=== PATIENT | female | born 1965 | race Caucasian/White ===

== ENCOUNTER → 2016-11-26 | Outpatient (CLI) | payer MEDICARE, MEDICAID ==
[~2016-11-26] MED LIST: ABILIFY30 MG PO; AMOXICILLIN 50500 MG PO; ATENOLOL50 MG PO; AUGMENTIN XR 101 TER PO; BENADRYL25 M1 PO; BIAXIN500 MG PO; BUSPIRONE HCL10 MG PO; CALCIUM CARBON600 MG PO; CIPRO 500MG TA500 MG PO; CIPRO500 MG PO; DARVOCET-N 1001 EACH PO; ESTRACE0.1 MG/GM VG; FLEXERIL10 MG PO; FUROSEMIDE 40MG40 M1 PO; GABAPENTIN 600600 MG PO; GABAPENTIN300 MG PO; GENTAMICIN3 MG/GM OP; HYDROCODONE BIT1 T45 PO; IBU-8800 MG PO; IMITREX100 MG PO; IRON TABLETS325 MG PO; LAMICTAL150 MG PO; LAMICTAL200 MG PO; LASIX20 MG PO; LEVOCETIRIZINE D5 MG PO; LISINOPRIL10 MG PO; LORATADINE 10MG10 M1 PO; LORTAB 5/500 501 TAB PO; MACROBID 100MG100 MG PO; MAGNESIUM OXID500 MG PO; MEDROL 4MG. DOSE4 MG PO; METOPROLOL25 MG PO; MULTI-VITAMIN1 EACH PO; NEURONTIN600 MG PO; OMEPRAZOLE20 MG PO; PHENERGAN 25MG.25 M1 PO; PHENERGAN 25MG.25 MG PR; PHENTERMINE H37.5 MG PO; PRAVASTATIN 20M20 MG PO; PREDNISONE 20MG20 MG; PREDNISONE 20MG20 MG PO; PROZAC40 MG PO; PYRIDIUM 200MG200 MG PO; PYRIDIUM100 MG PO; PYRIDIUM200 MG PO; RISPERDAL1 MG PO; SEROQUEL 100MG100 MG PO; STERAPRED DS10 MG PO; SUPER B COMPL PO; SYNTHROID 0.00.05 MG PO; TIZANIDINE HCL2 MG PO; TRAZODONE150 MG PO; ULTRACET 325 MG1 TAB PO; ULTRAM50 MG PO; VENLAFAXINE75 MG PO; VESICARE10 MG PO; VICODIN 5/500 T1 TAB PO; VIIBRYD20 MG PO; VISTARIL25 M1 PO; VITAMIN B121000 MC2 PO; VITAMIN B1250 MG PO; VITAMIN C100 MG PO; VIVELLE-DO0.1 MG/24 TD; WELLBUTRIN 100100 M1 PO; WELLBUTRIN 150150 MG PO; WELLBUTRIN SR100 MG PO
[2016-11-26 14:08] LABS: HEMOGLOBIN 13.4 g/dL (12.2-16.2); LYMPH # 1.8 K/mm3 (0.7-4.5); LYMPH % 15.3 % (10-50.0)
[2016-11-26 14:38] LABS: BUN 13 mg/dL (7-18)
[2016-11-26 14:40] LABS: GFR (ESTIMATED) 59 ML/MIN (59-)
== END ==
LOC: LAB 13:35
PROVIDERS: Emergency Medicine
DX: I10 Essential (primary) hypertension (principal); E78.5 Hyperlipidemia, unspecified; E03.9 Hypothyroidism, unspecified; Z79.899 Other long term (current) drug therapy

== ENCOUNTER → 2017-03-03 | Outpatient (CLI) | payer MEDICARE, MEDICAID ==
[2017-03-03 15:16] LABS: URINE BILIRUBIN - DIPSTICK NEGATIVE (NEG); URINE BLOOD NEGATIVE (NEG)
[2017-03-03 18:18] LABS: BUN 9 mg/dL (7-18); GFR (ESTIMATED) 53 ML/MIN (59-)
== END ==
LOC: LAB 14:53
PROVIDERS: Internal Medicine Nephrology
DX: N18.3 Chronic kidney disease, stage 3 (moderate) (principal); R82.90 Unspecified abnormal findings in urine

== ENCOUNTER 2017-07-29 20:07 | Emergency (ER) | payer MEDICARE ==
[~2017-07-29] VITALS: Ht 162.6 cm; Wt 112.9 kg
[2017-07-29] MEDS ORDERED: AUGMENTIN 875-1 EACH PO (20:56)
[2017-07-29] MEDS ORDERED: MEDROL 4MG. DOSE4 MG PO (20:56)
[2017-07-29] MEDS ORDERED: FLONASE 50 MCG16 GM (20:56)
[2017-07-29 20:58] VITALS: BP 123/74
--- NOTE | 2017-07-29 20:59 | Urgent Treatment Center Report ---
History of Present Issue Date/Time Seen by Provider 07/29/172044 Visit Reason Pt arrived:Walked Presenting Problem:LT EAR PAIN AND SINUS PRESSURE THAT STARTED YESTERDAY Location if Accident: Onset of symptoms date/time:/ or onset unknown for:MEDICAL HX UNKNOWN Have you (or family members/close friends) recently traveled outside the [place]? N If Yes, where/when: Have you had exposure to infectious disease within the past month? TB? Other? Specify: Patient state that she has been having sinus pain and pressure and having pain in her left ear State that she has been having sinus pain and pressure that started couple weeks ago then went away and now came back yesterday and now worse Tender to touch and feels pressure under her eyes and in her teeth. State that ear pain started yesterday and she thinks it may be coming from her sinsuses too ALLERGIES Coded Allergies: Sulfa (Sulfonamide Antibiotics) (Intermediate, I-HIVES 10/03/15) cefaclor (From Ceclor) (Intermediate, I-HIVES 10/03/15) Home Medications Active Scripts HYDROCODONE/ACETAMINOPHEN (Hydrocodon-Acetaminophen 5-325) 1 TAB PO TID PRN PAIN #90 TAB Prov: 12/16/16 Tramadol Hcl (Ultram 50MG) 50 MG PO TID #15 TAB Prov: 12/10/12 Reported Medications Omeprazole (Omeprazole 20MG) 20 MG PO BID Lisinopril 20 MG PO DAILY Lamotrigine (Lamictal) 150 MG PO BID Sumatriptan Succinate (Imitrex) 100 MG PO DAILYP Estradiol (Vivelle-Dot) 0.1 MG TD TWICE WEEKLY Calcium Carbonate 600 MG PO DAILY Ferrous Sulfate (Iron Tablet) 325 MG PO DAILY Multiple Vitamin (Multi-Vitamin Plain) 1 TAB PO DAILY Thiamine Hcl (Vitamin B-1) 250 MG PO DAILY Cyanocobalamin (Vitamin B12) 1,000 MCG PO DAILY Vitamin B Complex3 (Super B50 Complex) 1 CAP PO DAILY Ascorbic Acid (Vitamin C) 100 MG PO DAILY Hydroxyzine Pamoate (Vistaril 25MG CAP) 50 MG PO TID Risperidone (Risperdal) 1 MG PO TID Pravastatin Sodium (Pravastatin 20MG) 20 MG PO QHS LEVOCETIRIZINE DIHYDROCHLORIDE (Levocetirizine Dihydrochloride) 5 MG PO QAM Vilazodone Hydrochloride (Viibryd) 20 MG PO DAILY Gabapentin (Gabapentin 300MG) 300 MG PO BID Metoprolol Tartrate (Metoprolol) 12.5 MG PO ONCE Levothyroxine Sodium (Synthroid 0.05MG) 0.05 MG PO DAILY History Medical History General CAD? No Angina: Yes TN: No Hypertension? Yes Hyperlipidemia? Yes CHF? No DVT? No PE? No COPD? No Asthma? Yes Anemia? No GERD? Yes Gastric ulcers? No GI Bleed? No Hernia? Yes Thyroid Problems? Yes Hypothyroidism? Yes CVA? No Seizures? No Diabetes? No Renal Insuffiency? Yes UTI? No Stones? No GB Disease: Yes Nephritic Syndrome? No Asplenia? No Hepatitis? No Sickle Cell Disease? No Arthritis? Yes Migraines? Yes Cataracts? No Glaucoma? No MRSA? No HIV? No TB? No Anxiety? Yes Depression? Yes Cancer? No More? Yes Additional hx: 50% renal insufficiency Immunization HX DT/Tetanus < 1 YR AGO Flu LAST YEAR Pneumonia NEVER Surgical Hx Previous Surgery?Y MELO Gallbladd C SECTION X3 L KNEE X2 ARTHRO,REPLACEM L SHOULDER Tonsils Appendix HERNIA REPAIR-HIATAL NECK SURGERY PACEMAKER INSERTION NOSE BARIATRIC SURGERY 02-14-08 Family History Family HX Diabetes Yes CAD No Hypertension Yes Hyperlipidemia Yes Cancer Yes TB No Social History Smoking Hx Smoker: Never Smoker Tobacco: No Packs/day N/A Alcohol Alcohol: No Review of Systems All Other Systems Reviewed and Negative Constitutional chills, fever ENT ear pain, nose congestion. Respiratory denies cough, denies shortness of breath, denies wheezing Physical Exam Vital Signs Vital Signs Date Time Temp Pulse Resp B/P Pulse O2 O2 Flow FiO2 Ox Delivery Rate 07/29 2017 97.8 79 20 123/74 95 General Appearance Patient appears ill sitting in exam chair Ear, Nose, Throat sinus pain/drainage, nasal congestion, Tenderness noted maxillary sinuses Left ear red, tube observed Respiratory Status Yes: trachea midline, chest symmetrical, non tender chest. No: respiratory distress. Cardiovascular normal exam, regular rate/rhythm, no peripheral edema Neurologic alert, normal exam, oriented x 3 Medical Decision Making LABS/Meds/Orders Pt receiving controlled substance in ED? No Progress [facility] Progress Notes Comment Patient states that she is allergic to cephosporins however she has taken Augmentin before with no problems or reaction Patient educated on chance of cross sensitivity reaction verbalized understanding Departure Departure Time of Disposition 2051 Disposition DC Home or Self Care(routine) Clinical Impression Primary Impression: Sinusitis Condition STABLE Referrals Maame PATRICK,Jed Guerra (Family): 3 Days-Call Office if no improvement in symptoms Patient Instructions DI for Otitis Media (Middle Ear Infection)-Child, DI for Sinusitis, Sinus Headache, Sinusitis Additional Instructions Start antibiotic. Sinus infections may take 2-3 days to notice much improvement so be sure to use conservative measures as discussed for symptoms Flonase 2 spray in each nostril daily to help with nasal congestion, sinus an ear pressure/inflammation Lots of Fluids Sleep elevated Humidifer/vaporizer Discharge Counseling Counseled pt/family regarding diagnosis, medications/RX, home care, follow up needs Prescriptions Current Visit Scripts Amoxicillin/Potassium Clav (Augmentin 875-125 Tablet) 1 EACH PO BID #14 TAB Methylprednisolone (Medrol Dose Naun) 4 MG PO UD #1 NAUN TAKE DIRECTED ON PACKAGING Fluticasone Propionate (Flonase 50 Mcg Nasal [place]) 2 SPRAY NA DAILY #1 BOT at 2057
--- OUTSIDE RECORDS SUMMARY | 2017-08-01 13:46 | External Medical Summary Rpt | CCD ---
Author Author Conduent Organization Conduent Address Unknown Phone Unavailable Purpose Continuity of Care Document - through 2016
--- OUTSIDE RECORDS SUMMARY | 2017-08-01 13:46 | External Medical Summary Rpt | CCD ---
Author Author , NANI CARDOZA Address Unknown Phone [email or web address] Care Team Providers Care Machine Shop Inspector Name Role Phone Blake Chaney MD, Unavailable Unavailable Shanelle Landon MD Unavailable Unavailable JOSE ALEJANDRO Isabel MD, Unavailable Unavailable Audrey Olivera Unavailable Unavailable MANUELA PATRICK, Chucky Olivera III, MD Purpose Continuity of Care Document - 12-10-2012 through 2016 Problems Code Diagnosis DOS Provider Status 401.9 401.9 09-07-2013 [place] HYPERTENSIO [facility] N NOS Hospital 413.9 413.9 09-07-2013 [place] ANGINA [facility] PECTORIS Hospital NEC/NOS 458.0 458.0 09-07-2013 [place] ORTHOSTATIC [facility] HYPOTENSION 493.90 493.90 09-07-2013 [place] ASTHMA, [facility] UNSPECIFIED Hospital 780.2 780.2 09-07-2013 [place] SYNCOPE AND [facility] COLLAPSE Hospital V14.1 V14.1 09-07-2013 [place] HX-ANTIBIOT [facility] ALLERGY Hospital [facility] 692.6 692.6 07-17-2013 [place] DERMATITIS [facility] DUE TO Hospital PLANT 786.09 786.09 01-02-2013 [place] RESPIRATORY [facility] ABNORM NEC Hospital [id number] E849.0 01-02-2013 [place] ACCIDENT IN [facility] E932.0 E932.0 ADV 01-02-2013 [place] EFF [facility] Hospital OIDS E933.0 E933.0 ADV 01-02-2013 [facility] ANALLRG/ANT Hospital EMET 722.0 722.0 12-10-2012 [place] CERVICAL [facility] DISC [facility] DISPLACMNT 723.4 723.4 12-10-2012 [place] BRACHIAL [facility] NEURITIS Hospital NOS Allergies, Adverse Reactions, Alerts Type Drug Allergy Adverse Reaction to Substance Substance Reaction Severity Cephalosporin I-RASH Intermediate SULFA (sulfonamide) I-HIVES Intermediate Cefaclor I-HIVES Intermediate Medications Na ND Rx Da Fi Fi Am Da Di Ph RX Ph St me C No te ll ll ou ys ag ar # ys at rm s nt no ma ic us Or Da si cy ia de te s n re d SO 00 11 0 No DI 40 -2 UM 97 0- Lo 98 20 ng CH 30 13 er LO 9 RI Ac DE ti ve 0. 9% SO JAYLEEN TI ON Sa 63 11 0 No li 80 -2 ne 70 0- Lo 10 20 ng Fl 07 13 er us 5 h Ac 10 ti ML ve Sy ri ng e MA 00 11 0 No PA 90 -2 P 41 0- Lo 32 98 20 ng 5 26 13 er MG 1 Ac TA ti BL ve ET Sa 63 11 0 No li 80 -2 ne 70 0- Lo 10 20 ng Fl 07 13 er us 5 h Ac 10 ti ML ve Sy ri ng e SO 00 09 0 No JAYLEEN 00 -2 -M 90 9- Lo ED 04 20 ng RO 72 13 er L 2 12 Ac 5 ti MG ve AL DI 00 09 0 No PH 40 -2 EN 92 9- Lo HY [address] 03 13 er AM 1 IN Ac E ti 50 ve MG /M L SY RN G SO 00 08 0 No JAYLEEN 00 -1 -M 90 0- Lo ED 04 20 ng RO 72 13 er L 2 12 Ac 5 ti MG ve AL [place] 00 02 0 No ED 05 -2 NI 40 2- Lo SO 01 20 ng NE 82 13 er 0 20 Ac ti MG ve TA BL ET HY [address] 07 -2 OC 90 2- Lo OD 78 20 ng ON 09 13 er E/ 9H AP Ac AP ti ve 5/ 50 0M G TA KE Vital Signs 09-07-2013 07:33 Name Value Interpretat Reference Comment ion Range Body 98.2 [degF] Temperature BP 57 mm[Hg] Diastolic BP Systolic 95 mm[Hg] Heart 71 /min Rate/Pulse O2% 98 % Respiratory 20 /min Rate 09-07-2013 03:34 Name Value Interpretat Reference Comment ion Range BP 33 mm[Hg] Diastolic BP Systolic 90 mm[Hg] Heart 60 /min Rate/Pulse O2% 100 % Respiratory 20 /min Rate 07-17-2013 17:33 Name Value Interpretat Reference Comment ion Range Body 98.6 [degF] Temperature BP 78 mm[Hg] Diastolic BP Systolic 128 mm[Hg] Heart 66 /min Rate/Pulse O2% 95 % Respiratory 20 /min Rate 05-28-2013 20:16 Name Value Interpretat Reference Comment ion Range Body 98.6 [degF] Temperature BP 79 mm[Hg] Diastolic BP Systolic 117 mm[Hg] Heart 68 /min Rate/Pulse O2% 94 % Respiratory 17 /min Rate 01-02-2013 20:24 Name Value Interpretat Reference Comment ion Range BP 90 mm[Hg] Diastolic BP Systolic 141 mm[Hg] Heart 70 /min Rate/Pulse O2% 97 % Respiratory 24 /min Rate 01-02-2013 20:20 Name Value Interpretat Reference Comment ion Range Body 97.9 [degF] Temperature 01-02-2013 19:42 Name Value Interpretat Reference Comment ion Range Body 99.5 [degF] Temperature BP 101 mm[Hg] Diastolic BP Systolic 159 mm[Hg] Heart 78 /min Rate/Pulse O2% 96 % Respiratory 24 /min Rate 01-02-2013 14:23 Name Value Interpretat Reference Comment ion Range Body 98.3 [degF] Temperature BP 79 mm[Hg] Diastolic BP Systolic 122 mm[Hg] Heart 70 /min Rate/Pulse O2% 95 % Respiratory 20 /min Rate 01-02-2013 14:15 Name Value Interpretat Reference Comment ion Range Body 98.4 [degF] Temperature BP 77 mm[Hg] Diastolic BP Systolic 130 mm[Hg] Heart 67 /min Rate/Pulse O2% 95 % Respiratory 20 /min Rate 12-10-2012 22:03 Name Value Interpretat Reference Comment ion Range BP 105 mm[Hg] Diastolic BP Systolic 165 mm[Hg] Heart 76 /min Rate/Pulse O2% 98 % Respiratory 20 /min Rate 12-10-2012 20:47 Name Value Interpretat Reference Comment ion Range BP 98 mm[Hg] Diastolic BP Systolic 162 mm[Hg] Heart 98 /min Rate/Pulse O2% 99 % Respiratory 18 /min Rate Results Labs Lab Lab Date Result Refere Interp Status Commen Order Detail nces retati t Range on Drugs identified in Urine by Screen method (04-20-2017 11:14) Ampheta NEGATIV <1000 complet mine 017 E ed [Presen 11:14 ce] in Urine by Screen method 11-2 NEGATIV <50 complet oxy 017 E ed delta-9 11:14 tetrahy drocann abinol [Presen ce] in Unspeci fied specime n Hemoglobin A1c in Blood (03-18-2017 11:35) Hemoglo 5.0 % 0.0% Normal complet bin A1c 017 - ed in 11:35 7.0% Blood Protein [Presence] in Urine (03-03-2017 14:54) Protein < 6.0 0.0mg Normal complet 017 /dL - ed [Presen 14:54 11.9m ce] in g/dL Urine COMPREHENSIVE METABOLIC PANEL (09-07-2013 03:40) Glucose 75 74-106 complet 013 mg/dL ed Bld-mCn 03:40 c BUN 17 7-18 complet Bld-mCn 013 mg/dL ed c 03:40 Creat 09-07-2 1.1 0.6-1.0 complet SerPl-m 013 mg/dL ed Cnc 03:40 ESTIMAT 09-07- 111 50-200 complet ED 013 ML/MIN ed CREATIN 03:40 INE CLEARAN CE GFR 53 59- complet (ESTIMA 013 ML/MIN ed [place]) 03:40 Sodium 09-07- 138 136-145 complet SerPl-s 013 mmoL/L ed Cnc 03:40 Potassi 09-07- 4.5 3.5-5.1 complet um 013 mmoL/L ed SerPl-s 03:40 Cnc Chlorid 09-07- 101 98-107 complet e 013 mmoL/L ed SerPl-s 03:40 Cnc CO2 09-07-2 26 21.0-32 complet SerPl-s 013 mmoL/L .0 ed Cnc 03:40 Calcium 09-07-2 8.8 8.5-10. complet 013 mg/dL 1 ed SerPl-m 03:40 Cnc Prot 20-2 7.5 6.4-8.2 complet SerPl-m 013 gm/dL ed Cnc 03:40 Albumin 09-07-2 3.7 3.4-5.0 complet 013 gm/dL ed SerPl-m 03:40 Cnc Globuli 09-07-2 3.8 1.3-3.2 complet n 013 gm/dL ed Ser-mCn 03:40 c Albumin 11-20-2 1.0 UNK 1.1-1.8 complet /Glob 013 ed SerPl-m 03:40 Rto Bilirub 11-20-2 0.2 0.2-1.0 complet 013 mg/dL ed SerPl-m 03:40 Cnc AST 11-20-2 22 U/L 15-37 complet SerPl-c 013 ed Cnc 03:40 ALT 11-20-2 44 U/L 30-65 complet SerPl-c 013 ed Cnc 03:40 ALP 11-20-2 132 U/L 50-136 complet SerPl-c 013 ed Cnc 03:40 THYROID STIM HORMONE (09-07-2013 03:40) THYROID 11-20-2 10.77 0.358-3 complet STIM 013 uIU/ml .740 ed HORMONE 03:40 T3Free SerPl-mCnc (09-07-2013 03:40) T3Free 11-20-2 2 pg/mL 2.3-4.2 complet SerPl-m 013 ed Cnc 03:40 T4 Free SerPl-mCnc (09-07-2013 03:40) T4 Free 11-20-2 0.77 0.76-1. complet 013 ng/dL 46 ed SerPl-m 03:40 Cnc CBC with AUTO DIFF (09-07-2013 03:40) WBC # 11-20-2 10.1 4.8-10. complet Bld 013 K/MM3 8 ed Auto 03:40 RBC # 11-20-2 4.07 4.2-5.4 complet Bld 013 M/mm3 ed Auto 03:40 Hgb 11-20-2 12.8 12.2-16 complet Bld-mCn 013 g/dL .2 ed c 03:40 Hct Fr 11-20-2 40.2 % 37.0-47 complet Bld 013 .0 ed 03:40 MCV RBC 11-20-2 98.9 fl 82.2-97 complet 013 .8 ed 03:40 MCH RBC 11-20-2 31.5 pg 27-31.2 complet Qn 013 ed Auto 03:40 MEAN 11-20-2 31.9 31.8-35 complet CORPUSC 013 g/dl .4 ed ULAR 03:40 HGB CONC RDW RBC 11-20-2 14.7 % 11.5-17 complet Auto 013 .5 ed 03:40 Platele 11-20-2 241 142-424 complet t Bld 013 K/mm3 ed Ql 03:40 Manual MEAN 11-20-2 7.5 fl 7.4-10. complet PLATELE 013 4 ed T 03:40 VOLUME Granulo 11-20-2 64.1 % 37.0-80 complet cytes 013 .0 ed Fr Bld 03:40 Auto LYMPH % 11-20-2 28.3 % 10-50.0 complet 013 ed 03:40 Monocyt 11-20-2 4.4 % 1.7-9.3 complet es Fr 013 ed Bld 03:40 Auto Eosinop 11-20-2 2.8 % 0.1-12. complet hil Fr 013 0 ed Bld 03:40 Auto Basophi 11-20-2 0.4 % 0.1-2.0 complet ls Fr 013 ed Bld 03:40 Auto Granulo 11-20-2 6.5 1.8-7.8 complet cytes # 013 K/mm3 ed Bld 03:40 Auto Lymphoc 11-20-2 2.9 0.7-4.5 complet ytes Fr 013 K/mm3 ed Bld 03:40 Auto Monocyt 11-20-2 0.5 0.1-1.0 complet es # 013 K/mm3 ed Bld 03:40 Auto Eosinop 11-20-2 0.3 0.0-0.4 complet hil # 013 K/mm3 ed Bld 03:40 Auto Basophi 11-20-2 0.0 0-0.2 complet ls # 013 K/MM3 ed Bld 03:40 Auto Encounters Encounter Start End Date Code Location Performer Type Date Emergency LUCHO Olivera (ER) 3 03:23 3 07:34 [facility] Emergency LUCHO Chaney MD (ER) 3 17:21 3 17:38 [facility] Emergency LUCHO Chaney MD (ER) 3 19:58 3 20:18 [facility] Emergency LUCHO Isabel MD (ER) 3 19:07 3 20:29 [facility] Emergency LUCHO Olivera (ER) 3 14:00 3 14:27 [facility] Chucky Nicholson. Emergency LUCHO Timmons (ER) 3 20:53 3 22:04 [facility]
--- OUTSIDE RECORDS SUMMARY | 2017-08-01 13:46 | External Medical Summary Rpt | CCD ---
Author Author , NANI CARDOZA Address Unknown Phone [email or web address] Immunization Name Date Rout CVX Reac Dose Comm Prov Is Faci e tion ent ider Refu lity Give sed n Infl 10-0 Intr 150 0.5 Hist [facility] No [facility] uenz 2-20 amus mL oric ART5 ART5 a 17 cula al 91 91 Quad r Info Inj rmat ion - Sour ce Unsp ecif ied Infl 09-1 Intr 150 0.5 Hist [facility] No [facility]M uenz 2-20 amus mL oric ART5 ART5 a 16 cula al 91 91 Quad r Info Inj rmat ion - Sour ce Unsp ecif ied PPV2 08-0 Intr 33 0.5 Hist [facility] No W[facility]M 3 9-20 amus mL oric ART5 ART5 16 cula al 91 91 r Info rmat ion - Sour ce Unsp ecif ied
--- OUTSIDE RECORDS SUMMARY | 2017-08-01 13:46 | External Medical Summary Rpt | CCD ---
Author Author , NANI CARDOZA Address Unknown Phone [email or web address] Immunization Name Date Rout CVX Reac Dose [...]
--- OUTSIDE RECORDS SUMMARY | 2017-08-01 13:46 | External Medical Summary Rpt ---
Author Author [employer], [employer] Organization [employer] Address Unknown Phone Unavailable Results Opiates and Oxycodone(GC/MS),U Observa Value Referen Units Interpr Notes Date tion ce etation Range Oxycodo Negativ Cutoff= No No Test Apr 20 ne/Oxym e 100 informa informa include 2017 orph tion in tion in s 11:14 source source Oxycodo AM data data ne and Oxymorp honePer formed at: [facility] [id number] [place], [place] [id number]Lab Directo r: Jed Zamudio MD, Phone: [phone] Opiates Negativ Cutoff= No No Opiate Apr 20 e 100 informa informa test 2017 tion in tion in include 11:14 source source s AM data data Codeine , Morphin e, Hydromo rphone, Hydroco done. Drugs identified in Urine by Screen method Observa Value Referen Units Interpr Notes Date tion ce etation Range Positive urine drug screen samples are stored for 7 days. Contact the Lab if confirmation of positives is needed. Ampheta NEGATIV <1000 ng/mL No No Apr 20 mine E informa informa 2016 [Presen tion in tion in 11:14 ce] in source source AM Urine data data by Screen method Barbitura <200 ng/mL No No Apr 20 tigre informati informati 2016 [Mass/vol on in on in 11:14 AM ume] in source source Urine by data data Screen method Benzodiaz 200 ng/mL ng/mL No No Apr 20 epines informati informati 2016 [Mass/vol on in on in 11:14 AM ume] in source source Serum or data data Plasma by Screen method Cocaine <300 ng/g No No Apr 20 [Mass/vol informati informati 2016 ume] in on in on in 11:14 AM Unspecifi source source ed data data specimen Methadone <300 ng/mL No No Apr 20 informati informati 2016 [Mass/vol on in on in 11:14 AM ume] in source source Unspecifi data data ed specimen Opiates <300 ng/mL High This is Apr 20 [Mass/vol an 2016 ume] in UNCONFIRM 11:14 AM Unspecifi ED ed result. specimen This result is for medicalpu rposes and/or treatment only. Phencycli <25 ng/mL No No Apr 20 dine informati informati 2016 [Mass/vol on in on in 11:14 AM ume] in source source Unspecifi data data ed specimen 11-Hydr NEGATIV <50 ng/mL No No Apr 20 oxy E informa informa 2017 delta-9 tion in tion in 11:14 source source AM tetrahy data data drocann abinol [Presen ce] in Unspeci fied specime n Basic metabolic panel in Blood Observa Value Referen Units Interpr Notes Date tion ce etation Range Urea 7 - 18 mg/dL Normal No March 18 nitrogen informati 2016 [Mass/vol on in 11:35 AM ume] in source Serum or data Plasma Calcium 8.5 - mg/dL Normal No March 18 [Mass/vol 10.1 informati 2016 ume] in on in 11:35 AM Serum or source Plasma data Chloride 98 - 107 mmoL/L Normal No March 18 [Moles/vo informati 2016 lume] in on in 11:35 AM Serum or source Plasma data Carbon 21.0 - mmoL/L Normal No March 18 dioxide, 32.0 informati 2016 total on in 11:35 AM [Moles/vo source lume] in data Serum or Plasma Creatinin 0.55 - mg/dL Normal No March 18 e 1.02 informati 2016 [Mass/vol on in 11:35 AM ume] in source Serum or data Plasma Estimated 59- ML/MIN No REFERENCE March 18 informati RANGE: 2017 glomerula on in >60 11:35 AM r source ML/MIN/1. filtratio data 73 SQUARE n rate METERSIf (GF this patient is -A merican, then multiply theresult by 1.210. Glucose 74 - 106 mg/dL Normal No March 18 [Mass/vol informati 2016 ume] in on in 11:35 AM Serum or source Plasma data Potassium 3.5 - 5.1 mmoL/L Normal No March 18 informati 2016 [Moles/vo on in 11:35 AM lume] in source Serum or data Plasma Sodium 136 - 145 mmoL/L Normal No March 18 [Moles/vo informati 2016 lume] in on in 11:35 AM Serum or source Plasma data Thyroxine (T4) [Mass/volume] in Serum or Plasma Observa Value Referen Units Interpr Notes Date tion ce etation Range Thyroxine 4.7 - ug/dl Normal No March 18 (T4) 13.3 informati 2016 [Mass/vol on in 11:35 AM ume] in source Serum or data Plasma Thyrotropin [Units/volume] in Serum or Plasma Observa Value Referen Units Interpr Notes Date tion ce etation Range Thyrotrop 0.358 - uIU/ml Normal No March 18 in 3.740 informati 2016 [Units/vo on in 11:35 AM lume] in source Serum or data Plasma Hemoglobin A1c in Blood Observa Value Referen Units Interpr Notes Date tion ce etation Range Hemoglo 5.0 0.0 - % Normal < 6% March 18 bin A1c 7.0 NON-MARIBELL 2017 in BETIC 11:35 Blood LEVEL< AM 7% CONTROL LED DIABETI C LEVEL> 8% POORLY CONTROL LED DIABETI C LEVEL Parathyrin.intact [Mass/volume] in Serum or Plasma Observa Value Referen Units Interpr Notes Date tion ce etation Range Parathyri 15 - 65 pg/mL No Performed March 03 n.intact informati at: CB 2017 2:54 [Mass/vol on in - [facility] PM ume] in source Serum or data [place] [address] Plasma 0 [place], [place] [id number] Director College: Gerald Aguilar PhD, Phone: [phone] Renal function 2000 panel in Serum or Plasma Observa Value Referen Units Interpr Notes Date tion ce etation Range Albumin 3.4 - 5.0 gm/dL Normal No March 03 [Mass/vol informati 2016 2:54 ume] in on in PM Serum or source Plasma data Urea 7 - 18 mg/dL Normal No March 03 nitrogen informati 2016 2:54 [Mass/vol on in PM ume] in source Serum or data Plasma Calcium 8.5 - mg/dL Normal No March 03 [Mass/vol 10.1 informati 2016 2:54 ume] in on in PM Serum or source Plasma data Chloride 98 - 107 mmoL/L Normal No March 03 [Moles/vo informati 2016 2:54 lume] in on in PM Serum or source Plasma data Carbon 21.0 - mmoL/L Normal No March 03 dioxide, 32.0 informati 2016 2:54 total on in PM [Moles/vo source lume] in data Serum or Plasma Creatinin 0.55 - mg/dL High No March 03 e 1.02 informati 2016 2:54 [Mass/vol on in PM ume] in source Serum or data Plasma Estimated 59- ML/MIN Low REFERENCE March 03 RANGE: 2017 2:54 glomerula >60 PM r ML/MIN/1. filtratio 73 SQUARE n rate METERSIf (GF this patient is -A merican, then multiply theresult by 1.210. Glucose 74 - 106 mg/dL High No March 03 [Mass/vol informati 2016 2:54 ume] in on in PM Serum or source Plasma data Potassium 3.5 - 5.1 mmoL/L Normal No March 03 inform2016 2:54 [Moles/vo on in PM lume] in source Serum or data Plasma Sodium 136 - 145 mmoL/L Normal No March 03 [Moles/vo informati 2016 2:54 lume] in on in PM Serum or source Plasma data Phosphate 2.4 - 4.9 mg/dL Normal No March 03 inform2016 2:54 [Moles/vo on in PM lume] in source Unspecifi data ed specimen 25-Hydroxyvitamin D [Mass/volume] in Serum or Plasma Observa Value Referen Units Interpr Notes Date tion ce etation Range 25-Hydrox 30.0 - ng/mL No Vitamin D March 03 yvitamin 100.0 informati 2016 2:54 D on in deficienc PM [Mass/vol source y has ume] in data been Serum or defined Plasma by the [place] ofMedicin e and an Endocrine Society practice guideline as alevel of serum 25-OH vitamin D less than 20 ng/mL (1,2).The Endocrine Society went on to further define vitamin Dinsuffic iency as a level between 21 and 29 ng/mL (2).1. IOM (Institut e of Medicine) . 2010. Dietary reference intakes for calcium and D. Len stevenson [place]: [employer].2. Jose MF, Enedina [place], Manpreet Qureshi BOSCH, et al.Evalua tion, treatment , and preventio n of vitamin Ddeficien cy: an Endocrine Society clinical practiceg uideline. JCEM. 2010; 96(7):191 1-30.Perf ormed at: [facility] [place] [address] [place], [place] [id number] Director College: Gerald Aguilar PhD, Phone: [phone] Creatinine [Mass/volume] in Urine Observa Value Referen Units Interpr Notes Date tion ce etation Range Creatinin 20 - 320 mg/dL Normal No March 03 e informati 2017 2:54 [Mass/vol on in PM ume] in source Urine data Protein [Presence] in Urine Observa Value Referen Units Interpr Notes Date tion ce etation Range Protein < 6.0 0.0 - mg/dL Normal No March 03 11.9 informa 2016 [Presen tion in 2:54 PM ce] in source Urine data
--- OUTSIDE RECORDS SUMMARY | 2017-08-01 13:46 | External Medical Summary Rpt ---
[...] data ne and [employer] honePer formed at: [facility] [id number] [place], [place] [id number] 53Lab Directo r: Jed Zamudio MD, Phone: [phone] Opiates Negativ Cutoff= No No Opiate Apr [...] PM ume] in source Serum or data [address] [address] Plasma 0 [place], [place] [id number] Senior Environmental Consultant: Gerald Aguilar PhD, Phone: [phone] Renal function 2000 panel in Serum [...] been Serum or defined Plasma by the [place] ofMedicin e and an Endocrine Society practice guideline as alevel of serum 25-OH vitamin D less than 20 ng/mL (1,2).The Endocrine Society went on to further define vitamin Dinsuffic iency as a level between 21 and 29 ng/mL (2).1. IOM (Institut e of Medicine) . 2010. Dietary reference intakes for calcium and D. Len stevenson DC: TheNation al AcademAkeneo Press.2. Jose MF, Enedina [place], Manpreet Qureshi BOSCH, et al.Evalua tion, treatment , and preventio n of vitamin Ddeficien cy: an Endocrine Society clinical practiceg uideline. JCEM. 2010; 96(7):191 1-30.Perf ormed at: [facility] [address] [address] 0 [place], [place] [id number] Senior Environmental Consultant: Gerald Aguilar PhD, Phone: [phone] Creatinine [Mass/volume] in Urine Observa Value [...]
--- OUTSIDE RECORDS SUMMARY | 2017-08-01 13:46 | External Medical Summary Rpt | CCD ---
Author Author , NANI CARDOZA Address Unknown Phone [email or web address] Care Team Providers Care Finishing Range Supervisor Name Role Phone Blake Chaney MD, Unavailable Unavailable Shanelle Landon MD Unavailable Unavailable JOSE ALEJANDRO Isabel MD, Unavailable Unavailable Audrey Olivera Unavailable Unavailable MANUELA PATRICK, Chucky Olivera III, MD Purpose Continuity of Care Document - 12-10-2012 through 2016 Problems Code Diagnosis DOS Provider Status 401.9 401.9 09-07-2013 [place] HYPERTENSIO [facility] N NOS Hospital 413.9 413.9 09-07-2013 [place] ANGINA [facility] PECTORIS Hospital NEC/NOS 458.0 458.0 09-07-2013 [place] ORTHOSTATIC [facility] HYPOTENSION 493.90 493.90 09-07-2013 [place] ASTHMA, [facility] UNSPECIFIED Hospital 780.2 780.2 09-07-2013 [place] SYNCOPE AND [facility] COLLAPSE Hospital V14.1 V14.1 09-07-2013 [place] HX-ANTIBIOT [facility] ALLERGY Hospital [facility] 692.6 692.6 07-17-2013 [place] DERMATITIS [facility] DUE TO Hospital PLANT 786.09 786.09 01-02-2013 [place] RESPIRATORY [facility] ABNORM NEC Hospital E849.0 E849.0 01-02-2013 [place] ACCIDENT IN [facility] E932.0 E932.0 ADV 01-02-2013 [place] EFF [facility] Hospital OIDS E933.0 E933.0 ADV 01-02-2013 [facility] ANALLRG/ANT Hospital EMET 722.0 722.0 12-10-2012 [place] CERVICAL [facility] DISC [facility] DISPLACMNT 723.4 723.4 12-10-2012 [place] BRACHIAL [facility] NEURITIS Hospital NOS Allergies, Adverse Reactions, [...] 12 Ac 5 ti MG ve AL AR 00 02 0 No ED 05 -2 [...] LUCHO Olivera (ER) 3 03:23 3 07:34 [facility] Emergency LUCHO Chaney MD (ER) 3 17:21 3 17:38 [facility] Emergency LUCHO Chaney MD (ER) 3 19:58 3 20:18 [facility] Emergency LUCHO Isabel MD (ER) 3 19:07 3 20:29 [facility] Emergency LUCHO Olivera (ER) 3 14:00 3 14:27 [facility] Chucky Nicholson. Emergency LUCHO Timmons (ER) 3 20:53 3 22:04 [facility]
== END 2017-07-29 20:59 | disposition home or self-care (01) ==
LOC: UTC 20:07
DX: J01.90 Acute sinusitis, unspecified (principal); J45.909 Unspecified asthma, uncomplicated; E03.9 Hypothyroidism, unspecified; I10 Essential (primary) hypertension; Z88.2 Allergy status to sulfonamides; F41.8 Other specified anxiety disorders

== ENCOUNTER 2017-08-09 16:49 | Emergency (ER) | payer MEDICARE ==
[~2017-08-09] VITALS: Ht 162.6 cm; Wt 115.7 kg
[~2017-08-09 16:49] MED LIST changes: +AUGMENTIN 875-1 EACH PO; +FLONASE 50 MCG16 GM
--- OUTSIDE RECORDS SUMMARY | 2017-08-09 16:55 | External Medical Summary Rpt | CCD ---
Author Author , NANI CARDOZA Address Unknown Phone [email or web address] Care Team Providers Care Bottle Filler Name Role Phone lBake Chaney MD, Unavailable Unavailable Shanelle Landon MD Unavailable Unavailable JOSE ALEJANDRO Isabel MD, Unavailable Unavailable Audrey Olivera Unavailable Unavailable MANUELA PATRICK, Chucky Olivera III, MD Purpose Continuity of Care Document - 12-10-2012 through 2016 Problems Code Diagnosis DOS Provider Status 401.9 401.9 09-07-2013 [place] HYPERTENSIO [facility] N NOS Hospital 413.9 413.9 09-07-2013 [place] ANGINA [facility] PECTORIS Hospital NEC/NOS 458.0 458.0 09-07-2013 [place] ORTHOSTATIC [facility] HYPOTENSION 493.90 493.90 09-07-2013 [place] ASTHMA, [facility] UNSPECIFIED Hospital 780.2 780.2 09-07-2013 [place] SYNCOPE AND [facility] COLLAPSE Hospital V14.1 V14.1 09-07-2013 [place] HX-ANTIBIOT [facility] ALLERGY Hospital [facility] 692.6 692.6 07-17-2013 [place] DERMATITIS [facility] DUE TO Hospital PLANT 786.09 786.09 01-02-2013 [place] RESPIRATORY [facility] ABNORM NEC Hospital E849.0 E849.0 01-02-2013 [place] ACCIDENT IN [facility] E932.0 E932.0 ADV 01-02-2013 [place] EFF [facility] Hospital OIDS E933.0 E933.0 ADV 01-02-2013 [facility] ANALLRG/ANT Hospital EMET 722.0 722.0 12-10-2012 [place] CERVICAL [facility] DISC Hospital DISPLACMNT 723.4 723.4 12-10-2012 [place] BRACHIAL [facility] NEURITIS Hospital NOS Allergies, Adverse Reactions, [...] 12 Ac 5 ti MG ve AL GA 00 02 0 No ED 05 -2 [...] LUCHO Olivera (ER) 3 03:23 3 07:[address] [facility] Emergency LUCHO Chaney MD (ER) 3 17:21 3 17:38 [facility] Emergency LUCHO Chaney MD (ER) 3 19:58 3 20:18 [facility] Emergency LUCHO Isabel MD (ER) 3 19:07 3 20:29 [facility] Emergency LUCHO Olivera (ER) 3 14:00 3 14:27 [facility] Chucky Nicholson. Emergency LUCHO Timmons (ER) 3 20:53 3 22:04 [facility]
--- OUTSIDE RECORDS SUMMARY | 2017-08-09 16:55 | External Medical Summary Rpt | CCD ---
Author Author , NANI CARDOZA Address Unknown Phone [email or web address] Immunization Name Date Rout CVX Reac Dose [...]
--- OUTSIDE RECORDS SUMMARY | 2017-08-09 16:55 | External Medical Summary Rpt | CCD ---
Author Author , NANI CARDOZA Address Unknown Phone [email or web address] Immunization Name Date Rout CVX Reac Dose [...]
--- OUTSIDE RECORDS SUMMARY | 2017-08-09 16:55 | External Medical Summary Rpt | CCD ---
Author Author , NANI CARDOZA Address Unknown Phone [email or web address] Care Team Providers Care Coding Director Name Role Phone Blake Chaney MD, Unavailable Unavailable Shanelle Landon MD Unavailable Unavailable JOSE ALEJANDRO Isabel MD, Unavailable Unavailable Audrey Olivera Unavailable Unavailable MANUELA PATRICK, Chucky Olivera III, MD Purpose Continuity of Care Document - 12-10-2012 through 2016 Problems Code Diagnosis DOS Provider Status 401.9 401.9 09-07-2013 [place] HYPERTENSIO [facility] N NOS Hospital 413.9 413.9 09-07-2013 [place] ANGINA [facility] PECTORIS Hospital NEC/NOS 458.0 458.0 09-07-2013 [place] ORTHOSTATIC [facility] HYPOTENSION 493.90 493.90 09-07-2013 [place] ASTHMA, [facility] UNSPECIFIED Hospital 780.2 780.2 09-07-2013 [place] SYNCOPE AND [facility] COLLAPSE Hospital V14.1 V14.1 09-07-2013 [place] HX-ANTIBIOT [facility] ALLERGY Hospital [facility] 692.6 692.6 07-17-2013 [place] DERMATITIS [facility] DUE TO Hospital PLANT 786.09 786.09 01-02-2013 [place] RESPIRATORY [facility] ABNORM NEC Hospital E849.0 E849.0 01-02-2013 [place] ACCIDENT IN [facility] E932.0 E932.0 ADV 01-02-[address] [place] [address] [facility] OIDS E933.0 E933.0 ADV 01-02-2013 [facility] ANALLRG/ANT Hospital EMET 722.0 722.0 12-10-2012 [place] CERVICAL [facility] DISC Hospital DISPLACMNT 723.4 723.4 12-10-2012 [place] BRACHIAL [facility] NEURITIS Hospital NOS Allergies, Adverse Reactions, [...] 12 Ac 5 ti MG ve AL AL 00 02 0 No ED 05 -2 [...] LUCHO Olivera (ER) 3 03:23 3 07:34 [facility] Emergency LUCHO Chaney MD (ER) 3 17:21 3 17:38 [facility] Emergency LUCHO Chaney MD (ER) 3 19:58 3 20:18 [facility] Emergency LUCHO Isabel MD (ER) 3 19:07 3 20:29 [facility] Emergency LUCHO Olivera (ER) 3 14:00 3 14:27 [facility] Chucky Nicholson. Emergency LUCHO Timmons (ER) 3 20:53 3 22:04 [facility]
--- OUTSIDE RECORDS SUMMARY | 2017-08-09 16:55 | External Medical Summary Rpt ---
[...] formed at: [facility] [id number] [place], [place] [address] 53Lab Directo r: Jed Zamudio MD, Phone: [phone] Opiates Negativ Cutoff= No No Opiate Apr [...] PM ume] in source Serum or data [address] [address] Plasma 0 [place], [place] [id number] Spinner Open End: Gerald Aguilar PhD, Phone: [phone] Renal function 2000 panel in Serum [...] been Serum or defined Plasma by the [place] ofMedicin e and an Endocrine Society practice guideline as alevel of serum 25-OH vitamin D less than 20 ng/mL (1,2).The Endocrine Society went on to further define vitamin Dinsuffic iency as a level between 21 and 29 ng/mL (2).1. IOM (Institut e of Medicine) . 2010. Dietary reference intakes for calcium and D. Len stevenson DC: TheNation al AcademMakeGamesWithUs Press.2. Jose MF, Enedina [place], Manpreet Qureshi BOSCH, et al.Evalua tion, treatment , and preventio n of vitamin Ddeficien cy: an Endocrine Society clinical practiceg uideline. JCEM. 2010; 96(7):191 1-30.Perf ormed at: [facility] [address] [address] 0 [place], [place] [id number] Spinner Open End: Gerald Aguilar PhD, Phone: [phone] Creatinine [Mass/volume] in Urine Observa Value [...]
--- OUTSIDE RECORDS SUMMARY | 2017-08-09 16:55 | External Medical Summary Rpt ---
[...] data ne and [employer] honePer formed at: [facility] [id number] [place], [place] [address] 53Lab Directo r: Jed Zamudio MD, Phone: [phone] Opiates Negativ Cutoff= No No Opiate Apr [...] PM ume] in source Serum or data [address] [address] Plasma 0 [place], [place] [id number] Resolution Rep: Gerald Aguilar PhD, Phone: [phone] Renal function 2000 panel in Serum [...] been Serum or defined Plasma by the [place] ofMedicin e and an Endocrine Society practice guideline as alevel of serum 25-OH vitamin D less than 20 ng/mL (1,2).The Endocrine Society went on to further define vitamin Dinsuffic iency as a level between 21 and 29 ng/mL (2).1. IOM (Institut e of Medicine) . 2010. Dietary reference intakes for calcium and D. Len stevenson DC: TheNation al AcademTaqua Press.2. Jose MF, Ened[place], Manpreet Qureshi BOSCH, et al.Evalua tion, treatment , and preventio n of vitamin Ddeficien cy: an Endocrine Society clinical practiceg uideline. JCEM. 2010; 96(7):191 1-30.Perf ormed at: [facility] [address] [address] 0 [place], [place] [id number] Resolution Rep: Gerald Aguilar PhD, Phone: [phone] Creatinine [Mass/volume] in Urine Observa Value [...]
--- NOTE | 2017-08-09 17:25 | Urgent Treatment Center Report ---
History of Present Issue Date/Time Seen by Provider 08/09/17 1720 Visit Reason Pt arrived:Walked Presenting Problem:SEEN HERE, SINUS INFECTION, FINISHED ABX, SAME SYMPTOMS NOW Location if Accident: Onset of symptoms date/time:/ or onset unknown for:MEDICAL HX UNKNOWN Have you (or family members/close friends) recently traveled outside the [place]? N If Yes, where/when: Have you had exposure to infectious disease within the past month? TB? Other? Specify: c/o sinusitis again. Pt was seen here by another [employer] on 07/29 for one day hx of left ear pain and sinus pain. Has same symptoms two weeks prior that improved "somewhat" w/ mucinex but had gotten worse again. Dx sinusitis and OM, rx augmentin, flonase and medrol dose pack. Slight improvement but since yesterday, sinus pressure ("especially on left") starting to build again. Causing teeth to ache again and left eye to water "like before". Completed augmentin, medrol dose pack and prescribed flonase so hasn't taken or tried anything else. Reports a hx of this pattern ongoing for unknown amount of time "back to back like this". Has seen Dr. Hoff, ENT. Hx of PE tube placement "for something". Unsure if tubes are still in. Denies ever having CT or imaging of sinuses. Unsure when last saw Dr. Hoff and no scheduled follow up appointment. Has not seen PCP for frequency of symptoms. Source patient Exam Limitations no limitations ALLERGIES Coded Allergies: Sulfa (Sulfonamide Antibiotics) (Intermediate, I-HIVES 10/03/15) cefaclor (From Ceclor) (Intermediate, I-HIVES 10/03/15) Home Medications Active Scripts HYDROCODONE/ACETAMINOPHEN (Hydrocodon-Acetaminophen 5-325) 1 TAB PO TID PRN PAIN #90 TAB Prov: 12/16/16 Amoxicillin/Potassium Clav (Augmentin 875-125 Tablet) 1 EACH PO BID #14 TAB Prov: 07/29/17 Methylprednisolone (Medrol Dose Naun) 4 MG PO UD #1 NAUN Prov: 07/29/17 Fluticasone Propionate (Flonase 50 Mcg Nasal [place]) 2 SPRAY NA DAILY #1 BOT Prov: 07/29/17 Tramadol Hcl (Ultram 50MG) 50 MG PO TID #15 TAB Prov: 12/10/12 Reported Medications Omeprazole (Omeprazole 20MG) 20 MG PO BID Lisinopril 20 MG PO DAILY Lamotrigine (Lamictal) 150 MG PO BID Sumatriptan Succinate (Imitrex) 100 MG PO DAILYP Estradiol (Vivelle-Dot) 0.1 MG TD TWICE WEEKLY Calcium Carbonate 600 MG PO DAILY Ferrous Sulfate (Iron Tablet) 325 MG PO DAILY Multiple Vitamin (Multi-Vitamin Plain) 1 TAB PO DAILY Thiamine Hcl (Vitamin B-1) 250 MG PO DAILY Cyanocobalamin (Vitamin B12) 1,000 MCG PO DAILY Vitamin B Complex3 (Super B50 Complex) 1 CAP PO DAILY Ascorbic Acid (Vitamin C) 100 MG PO DAILY Hydroxyzine Pamoate (Vistaril 25MG CAP) 50 MG PO TID Risperidone (Risperdal) 1 MG PO TID Pravastatin Sodium (Pravastatin 20MG) 20 MG PO QHS LEVOCETIRIZINE DIHYDROCHLORIDE (Levocetirizine Dihydrochloride) 5 MG PO QAM Vilazodone Hydrochloride (Viibryd) 20 MG PO DAILY Gabapentin (Gabapentin 300MG) 300 MG PO BID Metoprolol Tartrate (Metoprolol) 12.5 MG PO ONCE Levothyroxine Sodium (Synthroid 0.05MG) 0.05 MG PO DAILY History Medical History General CAD? No Angina: Yes [place]: No Hypertension? Yes Hyperlipidemia? Yes CHF? No DVT? No PE? No COPD? No Asthma? Yes Anemia? No GERD? Yes Gastric ulcers? No GI Bleed? No Hernia? Yes Thyroid Problems? Yes Hypothyroidism? Yes CVA? No Seizures? No Diabetes? No Renal Insuffiency? Yes UTI? No Stones? No GB Disease: Yes Nephritic Syndrome? No Asplenia? No Hepatitis? No Sickle Cell Disease? No Arthritis? Yes Migraines? Yes Cataracts? No Glaucoma? No MRSA? No HIV? No TB? No Anxiety? Yes Depression? Yes Cancer? No More? Yes Additional hx: 50% renal insufficiency Immunization HX DT/Tetanus < 1 YR AGO Flu LAST YEAR Pneumonia NEVER Surgical Hx Previous Surgery?Y MELO Gallbladd C SECTION X3 L KNEE X2 ARTHRO,REPLACEM L SHOULDER Tonsils Appendix HERNIA REPAIR-HIATAL NECK SURGERY PACEMAKER INSERTION NOSE BARIATRIC SURGERY 02-14-08 Family History Family HX Diabetes Yes CAD No Hypertension Yes Hyperlipidemia Yes Cancer Yes TB No Social History Smoking Hx Smoker: Never Smoker Tobacco: No Packs/day N/A Alcohol Alcohol: No Review of Systems All Other Systems Reviewed and Negative Constitutional see HPI, denies chills, denies fever, denies malaise Eyes see HPI, denies inflammation, denies pain ENT see HPI. denies: ear discharge, throat pain. Respiratory denies cough, denies shortness of breath Gastrointestinal denies no symptoms reported Musculoskeletal denies joint pain, denies neck pain Skin denies rash Psychiatric/Neurological headache ("sinus pressure type"), denies other (dizziness) Physical Exam Vital Signs Vital Signs Date Time Temp Pulse Resp B/P Pulse O2 O2 Flow FiO2 Ox Delivery Rate 08/09 1658 97.2 83 18 116/77 94 General Appearance no apparent distress, obese Eye Exam - bilateral eye normal exam Ear, Nose, Throat ashley eacs and tms normal, nasal congestion, moderate sinus pressure left maxillary and frontal sinuses, normal pharynx x/ PND Neck non-tender, supple, full range of motion Respiratory Status No: respiratory distress, productive cough, non productive cough. Lung Sounds anterior: lungs clear. posterior: lungs clear. bilateral: lungs clear. Cardiovascular regular rate/rhythm, no peripheral edema, no murmur Neurologic alert, insurance office supervisor II-XII nml as tested, oriented x 3 Mental status normal mood/affect Skin normal color, warm/dry Lymphatic no adenopathy Medical Decision Making LABS/Meds/Orders Pt receiving controlled substance in ED? No Results/Orders Current Medication Orders Sig/Barbara Start time Last Medication Dose Route Stop Time Status Admin Methylprednisolone 125 MG ONCE ONE 08/09 1745 DC Sodium Succinate IM 08/09 1746 Departure Departure Time of Disposition 1737 Disposition DC Home or Self Care(routine) Clinical Impression Primary Impression: Chronic recurrent sinusitis Condition STABLE Referrals Maame PATRICK,Jed Guerra (Family) call office tomorrow morning. Tell them you were seen in [facility] today and that we started treatment but told you to follow up with someone there tomorrow, Thursday. Patient Instructions DI for Sinusitis Additional Instructions * avoid sudafed considering your cardiac hx. Coricidin HBP may have a sinus pressure product * Restart Flonase 2 sprays each nostril daily to help with sinus and ear pressure/inflammation * Lots of fluids * Sleep elevated * Humidifier/vaporizer * sinus rinse daily * You rcvd solu-medrol 125mg in clinic today in hopes of providing you with some relief while you follow up with primary care tomorrow. They can decide rather to continue to treat in their office or refer you back to ENT for further evaluation based on your history. * Return to ER for any worsening headache or new onset symptoms Discharge Counseling Counseled pt/family regarding diagnosis, medications/RX, home care, follow up needs Prescriptions Current Visit Scripts Fluticasone Propionate (Flonase 50 Mcg Nasal [place]) 2 SPRAY NA DAILY #1 BOT at 2463
[2017-08-09] MEDS ORDERED: FLONASE 50 MCG16 GM (17:41)
[2017-08-09 18:02] VITALS: BP 116/77
== END 2017-08-09 18:02 | disposition home or self-care (01) ==
LOC: UTC 16:49
DX: M25.511 Pain in right shoulder (principal); E03.9 Hypothyroidism, unspecified; E78.5 Hyperlipidemia, unspecified; I10 Essential (primary) hypertension; K21.9 Gastro-esophageal reflux disease without esophagitis; F41.8 Other specified anxiety disorders; Z88.1 Allergy status to other antibiotic agents; Z88.2 Allergy status to sulfonamides

== ENCOUNTER → 2017-08-11 | Outpatient (CLI) | payer MEDICARE ==
[2017-08-11 13:47] LABS: HEMOGLOBIN 12.7 g/dL (12.2-16.2); LYMPH % 30.8 % (10-50.0)
[2017-08-11 14:39] LABS: BUN 11 mg/dL (7-18)
[2017-08-11 14:43] LABS: GFR (ESTIMATED) 66 ML/MIN (59-)
== END ==
LOC: LAB 13:12
PROVIDERS: Nurse Practitioner Family
DX: R53.83 Other fatigue (principal); Z79.899 Other long term (current) drug therapy

== ENCOUNTER 2017-08-22 16:00 | Emergency (ER) | payer MEDICARE ==
[~2017-08-22] VITALS: Ht 162.6 cm; Wt 118.4 kg
--- OUTSIDE RECORDS SUMMARY | 2017-08-22 16:10 | External Medical Summary Rpt | CCD ---
Author Author , NANI CARDOZA Address Unknown Phone [email or web address] Care Team Providers Care Oracle Database Administrator Name Role Phone Blake Chaney MD, Unavailable Unavailable Shanelle Landon MD Unavailable Unavailable JOSE ALEJANDRO Isabel MD, Unavailable Unavailable Audrey Olivera Unavailable Unavailable MANUELA PATRICK, Chucky Olivera III, MD Purpose Continuity of Care Document - 12-10-2012 through 2016 Problems Code Diagnosis DOS Provider Status 401.9 401.9 09-07-2013 [place] HYPERTENSIO [facility] N NOS Hospital 413.9 413.9 09-07-2013 [place] ANGINA [facility] PECTORIS Hospital NEC/NOS 458.0 458.0 09-07-2013 [place] ORTHOSTATIC [facility] HYPOTENSION 493.90 493.90 09-07-2013 [place] ASTHMA, [facility] UNSPECIFIED Hospital 780.2 780.2 09-07-2013 [place] SYNCOPE AND [facility] COLLAPSE Hospital V14.1 V14.1 09-07-2013 [place] HX-ANTIBIOT [facility] ALLERGY Hospital [facility] 692.6 692.6 07-17-2013 [place] DERMATITIS [facility] DUE TO Hospital PLANT 786.09 786.09 01-02-2013 [place] RESPIRATORY [facility] ABNORM NEC Hospital E849.0 E849.0 01-02-2013 [place] ACCIDENT IN [facility] E932.0 E932.0 ADV 01-02-2013 [place] EFF [facility] Hospital OIDS E933.0 E933.0 ADV 01-02-2013 [facility] ANALLRG/ANT Hospital EMET 722.0 722.0 12-10-2012 [place] CERVICAL [facility] DISC [facility] DISPLACMNT 723.4 723.4 12-10-2012 [place] BRACHIAL [facility] NEURITIS Hospital NOS Allergies, Adverse Reactions, [...] 12 Ac 5 ti MG ve AL MA 00 02 0 No ED 05 -2 [...] Order Detail nces retati t Range on Serum or plasma 25-hydroxyvitamin D ifeoma (08-11-2017 09:35) Serum 24-2 = 32.1 30.0-10 complet or 017 ng/mL 0.0 ed plasma 09:35 25-hydr oxyvita min D ifeoma Comment: Vitamin D deficiency has been defined by the [place] of Comment: Medicine and an Endocrine Society practice guideline as a Comment: level of serum 25-OH vitamin D less than 20 ng/mL (1,2). Comment: The Endocrine Society went on to further define vitamin D Comment: insufficiency as a level between 21 and 29 ng/mL (2). Comment: 1. IOM ([place] of Medicine). 2010. Dietary reference Comment: intakes for calcium and D. [place]: The Comment: [employer]. Comment: 2. Jose MF, Enedina MONTANEZ, Ivana BOSCH, et al. Comment: Evaluation, treatment, and prevention of vitamin D Comment: deficiency: an Endocrine Society clinical practice Comment: guideline. JCEM. 2010; 96(7):1911-30. Comment: [facility] at[facility] Comment: [address], [place] [id number] Comment: Tube Machine Operator Helper: Gerald Aguilar PhD, Phone: [phone] Hemoglobin A1c measurement (08-11-2017 09:35) Hemoglo 08-11-2 5.4 % 0.0-7.0 complet bin A1c 017 ed 09:35 Comment: < 6% NON-DIABETIC LEVEL Comment: < 7% CONTROLLED DIABETIC LEVEL Comment: > 8% POORLY CONTROLLED DIABETIC LEVEL Comprehensive metabolic panel (08-11-2017 09:35) Serum 10-24-2 = 0.9 0.55-1. complet or 017 mg/dL 02 ed plasma 09:35 creatin ine measure ment ( Carbon 08-11-2 = 30 21.0-32 complet dioxide 017 mmoL/L .0 ed 09:35 measure ment Serum 10-24-2 = 104 98-107 complet or 017 mmoL/L ed plasma 09:35 chlorid e measure ment (mo Serum 10-24-2 = 8.9 8.5-10. complet or 017 mg/dL 1 ed plasma 09:35 calcium measure ment (mas Serum 10-24-2 = 11 7-18 complet or 017 mg/dL ed plasma 09:35 urea nitroge n measure men Serum 10-24-2 = 0.3 0.2-1.0 complet or 017 mg/dL ed plasma 09:35 total bilirub in measure m Serum 24-2 = 81 46-116 complet or 017 U/L ed plasma 09:35 alkalin e phospha tase adriana Serum = 3.4 3.4-5.0 complet or 017 gm/dL ed plasma 09:35 albumin measure ment (mas Serum 2 = 1.1 1.1-1.8 complet or 017 ed plasma 09:35 albumin /globul in mass ra Protein = 6.4 6.4-8.2 complet total 017 gm/dL ed ser/brit 09:35 s ALT = 66 12-78 complet (SGPT) 017 U/L ed ser/brit 09:35 s Serum 2 = 32 15-37 complet or 017 U/L ed plasma 09:35 asparta te aminotr ansfera Serum = 142 136-145 complet sodium 017 mmoL/L ed measure 09:35 ment Serum = 3.8 3.5-5.1 complet potassi 017 mmoL/L ed um 09:35 measure ment Serum = 80 74-106 complet or 017 mg/dL ed plasma 09:35 glucose measure ment (mas Serum = 3.0 1.3-3.2 complet globuli 017 gm/dL ed n 09:35 measure ment (mass/v olume) Estimat = 66 59- complet ed 017 ML/MIN ed glomeru 09:35 lar filtrat ion rate (GF Comment: REFERENCE RANGE: >60 ML/MIN/1.73 SQUARE METERS Comment: If this patient is -Pakistani, then multiply the Comment: result by 1.210. CBC w auto diff (08-11-2017 09:35) Blood = 13.0 4.8-10. complet leukocy 017 K/MM3 8 ed tigre 09:35 count (number /volume ) Automat = 12.7 11.5-17 complet ed 017 % .5 ed erythro 09:35 cyte distrib ution width Red = 3.89 4.2-5.4 complet blood 017 M/mm3 ed cell 09:35 count Blood = 210 142-424 complet platele 017 K/mm3 ed t count 09:35 Automat = 8.7 7.4-10. complet ed 017 fl 4 ed blood 09:35 platele t mean volume adriana [place] % = 5.2 % 1.7-9.3 complet 017 ed 09:35 Absolut = 0.7 0.1-1.0 complet e 017 K/mm3 ed monocyt 09:35 e count Automat = 102.4 82.2-97 complet ed 017 fl .8 ed erythro 09:35 cyte mean corpusc ular v Automat = 32.0 31.8-35 complet ed 017 g/dl .4 ed erythro 09:35 cyte mean corpusc ular h Mean = 32.7 27-31.2 complet corpusc 017 pg ed ular 09:35 hemoglo bin (MCH) determ Lymphoc = 30.8 10-50.0 complet yte 017 % ed count, 09:35 blood, automat ed Absolut = 4.0 0.7-4.5 complet e 017 K/mm3 ed lymphoc 09:35 yte count Blood = 12.7 12.2-16 complet hemoglo 017 g/dL .2 ed bin 09:35 measure ment (mass/v olum Blood = 39.8 37.0-47 complet hematoc 017 % .0 ed rit 09:35 (volume fractio n) Granulo = 62.2 37.0-80 complet cyte 017 % .0 ed percent 09:35 age Automat = 0.1 0-0.2 complet ed 017 K/MM3 ed blood 09:35 basophi l count (count/ vo Blood = 8.1 1.8-7.8 complet granulo 017 K/mm3 ed cytes 09:35 automat ed count (numb Automat = 1.1 % 0.1-12. complet ed 017 0 ed blood 09:35 eosinop hils/10 0 leukocy t Automat = 0.1 0.0-0.4 complet ed 017 K/mm3 ed blood 09:35 eosinop hil count Baso % 10-24-2 = 0.7 % 0.1-2.0 complet 017 ed 09:35 Serum or plasma thyroid stimulating horm (08-11-2017 09:35) Serum 08-11-2 = 2.84 0.358-3 complet or 017 uIU/ml .740 ed plasma 09:35 thyroid stimula ting horm Lipid profile (08-11-2017 09:35) Serum 2 = 48.4 0-40 complet or 017 ed plasma 09:35 cholest volodymyr in VLDL ifeoma Serum = 242 30-200 complet or 017 mg/dL ed plasma 09:35 triglyc eride measure ment Serum = 93.6 0-130 complet or 017 mg/dL ed plasma 09:35 cholest volodymyr in LDL measu Serum = 45.0 40-60 complet or 017 MG/DL ed plasma 09:35 cholest voldoymyr in HDL measu Total = 187 < 200 complet cholest 017 mg/dL ed volodymyr 09:35 measure ment Serum or plasma free thyroxine (T4) ifeoma (08-11-2017 09:35) Serum 08-11-2 = 0.91 0.76-1. complet or 017 ng/dL 46 ed plasma 09:35 free thyroxi ne (T4) ifeoma Hemoglobin A1c in Blood (08-11-2017 09:35) Hemoglo 5.4 % 0.0% Normal complet bin A1c 017 - ed in 09:35 7.0% Blood Drugs identified in Urine by Screen method (04-20-2017 11:14) Ampheta NEGATIV <1000 complet mine 017 E ed [Presen 11:14 ce] in Urine by Screen method 11- NEGATIV <50 complet oxy 017 E ed [...] Urine COMPREHENSIVE METABOLIC PANEL (09-07-2013 03:40) Glucose 09-07-2 75 74-106 complet 013 mg/dL ed Bld-mCn 03:40 c BUN 09-07-2 17 7-18 complet Bld-mCn 013 mg/dL ed c 03:40 Creat 09-07-2 1.1 0.6-1.0 complet SerPl-m 013 mg/dL ed Cnc 03:40 ESTIMAT 20-2 111 50-200 complet ED 013 ML/MIN ed CREATIN 03:40 INE CLEARAN CE GFR 09-07- 53 59- complet (ESTIMA 013 ML/MIN ed [place]) 03:40 Sodium 09-07-2 138 136-145 complet SerPl-s 013 mmoL/L ed Cnc 03:40 Potassi 09-07- 4.5 3.5-5.1 complet um 013 mmoL/L ed SerPl-s 03:40 Cnc Chlorid 09-07-2 101 98-107 complet e 013 mmoL/L ed SerPl-s 03:40 Cnc CO2 09-07-2 26 21.0-32 complet SerPl-s 013 mmoL/L .0 ed Cnc 03:40 Calcium 09-07-2 8.8 8.5-10. complet 013 mg/dL 1 ed SerPl-m 03:40 Cnc Prot 20-2 7.5 6.4-8.2 complet SerPl-m 013 gm/dL ed Cnc 03:40 Albumin 09-07-2 3.7 3.4-5.0 complet 013 gm/dL ed SerPl-m 03:40 Cnc Globuli 20-2 3.8 1.3-3.2 complet n 013 gm/dL ed Ser-mCn 03:40 c Albumin 09-07-2 1.0 UNK 1.1-1.8 complet /Glob 013 ed SerPl-m 03:40 Rto Bilirub 20-2 0.2 0.2-1.0 complet 013 mg/dL ed SerPl-m 03:40 Cnc AST 20-2 22 U/L 15-37 complet SerPl-c 013 ed Cnc 03:40 ALT 20-2 44 U/L 30-65 complet SerPl-c 013 ed [...] LUCHO Olivera (ER) 3 03:23 3 07:34 [facility] Chucky Bharat. Emergency LUCHO Chaney MD (ER) 3 17:21 3 17:38 [facility] Emergency LUCHO Chaney MD (ER) 3 19:58 3 20:18 [facility] Emergency LUCHO Isabel MD (ER) 3 19:07 3 20:29 [facility] Emergency LUCHO Olivera (ER) 3 14:00 3 14:27 [facility] Chucky E. Emergency LUCHO iTmmons (ER) 3 20:53 3 22:04 [facility]
--- OUTSIDE RECORDS SUMMARY | 2017-08-22 16:10 | External Medical Summary Rpt | CCD ---
Demographics Preferred Language Nigerian Marital Status Unknown Sabianist Affiliation Unknown Race Unknown Ethnic Group Unknown Author Author , NANI CARDOZA Address Unknown Phone Immunization Unable to retrieve immunization data due to connection failure with Immunization Registry. Please try again later.
--- OUTSIDE RECORDS SUMMARY | 2017-08-22 16:10 | External Medical Summary Rpt | CCD ---
Author Author , NANI CARDOZA Address Unknown Phone [email or web address] Care Team Providers Care Window Glazier Helper Name Role Phone Blake Chaney MD, Unavailable Unavailable Shanelle Landon MD Unavailable Unavailable JOSE ALEJANDRO Isabel MD, Unavailable Unavailable Audrey Olivera Unavailable Unavailable MANUELA PATRICK, Chucky Olivera III, MD Purpose Continuity of Care Document - 12-10-2012 through 2016 Problems Code Diagnosis DOS Provider Status 401.9 401.9 09-07-2013 [place] HYPERTENSIO [facility] N NOS Hospital 413.9 413.9 09-07-2013 [place] ANGINA [facility] PECTORIS Hospital NEC/NOS 458.0 458.0 09-07-2013 [place] ORTHOSTATIC [facility] HYPOTENSION 493.90 493.90 09-07-2013 [place] ASTHMA, [facility] UNSPECIFIED Hospital 780.2 780.2 09-07-2013 [place] SYNCOPE AND [facility] COLLAPSE Hospital V14.1 V14.1 09-07-2013 [place] HX-ANTIBIOT [facility] ALLERGY Hospital [facility] 692.6 692.6 07-17-2013 [place] DERMATITIS [facility] DUE TO Hospital PLANT 786.09 786.09 01-02-2013 [place] RESPIRATORY [facility] ABNORM NEC Hospital E849.0 E849.0 01-02-2013 [place] ACCIDENT IN [facility] E932.0 E932.0 ADV 01-02-2013 [place] EFF [facility] Hospital OIDS E933.0 E933.0 ADV 01-02-2013 [facility] ANALLRG/ANT Hospital EMET 722.0 722.0 12-10-2012 [place] CERVICAL [facility] DISC [facility] DISPLACMNT 723.4 723.4 12-10-2012 [place] BRACHIAL [facility] NEURITIS Hospital NOS Allergies, Adverse Reactions, Alerts [...] 12 Ac 5 ti MG ve AL MT 00 02 0 No ED 05 -2 [...] D deficiency has been defined by the [place] of Comment: Medicine and an Endocrine Society practice guideline as a Comment: level of serum 25-OH vitamin D less than 20 ng/mL (1,2). Comment: The Endocrine Society went on to further define vitamin D Comment: insufficiency as a level between 21 and 29 ng/mL (2). Comment: 1. IOM ([place] of Medicine). 2010. Dietary reference Comment: intakes for calcium and D. [place]: The Comment: [employer]. Comment: 2. Jose MF, Enedina MONTANEZ, Ivana BOSCH, et al. Comment: Evaluation, treatment, and prevention of vitamin D Comment: deficiency: an Endocrine Society clinical practice Comment: guideline. JCEM. 2010; 96(7):1911-30. Comment: [facility] at[facility] Comment: [address] [place], [place] [id number] Comment: Licensed Customs Broker: Gerald Aguilar PhD, Phone: [phone] Hemoglobin A1c measurement (08-11-2017 09:35) Hemoglo 08-11-2 [...] SQUARE METERS Comment: If this patient is -Sudanese, then multiply the Comment: result by 1.210. [...] blood 09:35 platele t mean volume adriana [place] % = 5.2 % 1.7-9.3 complet 017 [...] or 017 MG/DL ed plasma 09:35 cholest volodymyr in HDL measu Total = 187 < [...] LUCHO Olivera (ER) 3 03:23 3 07:34 [facility] Chucky Bharat. Emergency LUCHO Chaney MD (ER) 3 17:21 3 17:38 [facility] Emergency LUCHO Chaney MD (ER) 3 19:58 3 20:18 [facility] Emergency LUCHO Isabel MD (ER) 3 19:07 3 20:29 [facility] Emergency LUCHO Olivera (ER) 3 14:00 3 14:27 [facility] Chucky E. Emergency LUCHO Timmons (ER) 3 20:53 3 22:04 [facility]
--- OUTSIDE RECORDS SUMMARY | 2017-08-22 16:10 | External Medical Summary Rpt | CCD ---
Demographics Preferred Language [place] Citizen Marital Status Unknown Buddhist Affiliation Unknown Race Unknown Ethnic Group Unknown Author Author , NANI CARDOZA Address Unknown Phone Immunization Unable to retrieve immunization data due to connection failure with Immunization Registry. Please try again later.
--- OUTSIDE RECORDS SUMMARY | 2017-08-22 16:11 | External Medical Summary Rpt ---
Author Author [employer], [employer] Address Unknown Phone Unavailable Results 25-Hydroxyvitamin D [Mass/volume] in Serum or Plasma Observa Value Referen Units Interpr Notes Date tion ce etation Range 25-Hydrox 30.0 - ng/mL No Vitamin D Aug 11 yvitamin 100.0 informati 2017 9:35 D on in deficienc AM [Mass/vol source y has ume] in data been Serum or defined Plasma by the [place] ofMedicin e and an Endocrine Society practice guideline as alevel of serum 25-OH vitamin D less than 20 ng/mL (1,2).The Endocrine Society went on to further define vitamin Dinsuffic iency as a level between 21 and 29 ng/mL (2).1. IOM (Institut e of Medicine) . 2010. Dietary reference intakes for calcium and D. [place]: [employer] al [employer].2. Jose MF, Enedina [place], Manpreet Qureshi BOSCH, et al.Evalua tion, treatment , and preventio n of vitamin Ddeficien cy: an Endocrine Society clinical practiceg uideline. JCEM. 2010; 96(7):191 1-30.[facility]f ormed at: [facility] [place] [id number] Cook Pickled Meat: Gerald Aguilar PhD, Phone: [phone] Hemoglobin A1c in Blood Observa Value Referen Units Interpr Notes Date tion ce etation Range Hemoglo 5.4 0.0 - % Normal < 6% Aug 11 bin A1c 7.0 NON-MARIBELL 2017 in BETIC 9:35 AM Blood LEVEL< 7% CONTROL LED DIABETI C LEVEL> 8% POORLY CONTROL LED DIABETI C LEVEL Comprehensive metabolic 2000 panel in Serum or Plasma Observa Value Referen Units Interpr Notes Date ti ce etation Range Albumin/G 1.1 - 1.8 No Normal No Aug 11 lobulin informati informati 2017 9:35 [Mass on in on in AM ratio] in source source Serum or data data Plasma Albumin 3.4 - 5.0 gm/dL Normal No Aug 11 [Mass/vol informati 2017 9:35 ume] in on in AM Serum or source Plasma data Alkaline 46 - 116 U/L Normal No Aug 11 phosphata informati 2017 9:35 se on in AM [Enzymati source c data activity/ volume] in Serum or Plasma Bilirubin 0.2 - 1.0 mg/dL Normal No Aug 11 .total informati 2017 9:35 [Mass/vol on in AM ume] in source Serum or data Plasma Urea 7 - 18 mg/dL Normal No Aug 11 nitrogen informati 2016 9:35 [Mass/vol on in AM ume] in source Serum or data Plasma Calcium 8.5 - mg/dL Normal No Aug 11 [Mass/vol 10.1 informati 2016 9:35 ume] in on in AM Serum or source Plasma data Chloride 98 - 107 mmoL/L Normal No Aug 11 [Moles/vo informati 2016 9:35 lume] in on in AM Serum or source Plasma data Carbon 21.0 - mmoL/L Normal No Aug 11 dioxide, 32.0 informati 2017 9:35 total on in AM [Moles/vo source lume] in data Serum or Plasma Creatinin 0.55 - mg/dL Normal No Aug 11 e 1.02 informati 2017 9:35 [Mass/vol on in AM ume] in source Serum or data Plasma Estimated 59- ML/MIN No REFERENCE Jul 24 informati RANGE: 2017 9:35 glomerula on in >60 AM r source ML/MIN/1. filtratio data 73 SQUARE n rate METERSIf (GF this patient is -A merican, then multiply theresult by 1.210. Globulin 1.3 - 3.2 gm/dL Normal No Aug 11 [Mass/vol informati 2017 9:35 ume] in on in AM Serum source data Glucose 74 - 106 mg/dL Normal No Aug 11 [Mass/vol informati 2017 9:35 ume] in on in AM Serum or source Plasma data Potassium 3.5 - 5.1 mmoL/L Normal No Jul 24 informati 2017 9:35 [Moles/vo on in AM lume] in source Serum or data Plasma Sodium 136 - 145 mmoL/L Normal No Oct 24 [Moles/vo informati 2016 9:35 lume] in on in AM Serum or source Plasma data Aspartate 15 - 37 U/L Normal No Aug 11 informati 2016 9:35 aminotran on in AM sferase source [Enzymati data c activity/ volume] in Serum or Plasma Alanine 12 - 78 U/L Normal No Aug 11 aminotran informati 2016 9:35 sferase on in AM [Enzymati source c data activity/ volume] in Serum or Plasma Protein 6.4 - 8.2 gm/dL Normal No Aug 11 [Mass/vol informati 2016 9:35 ume] in on in AM Serum or source Plasma data Thyroxine (T4) free [Mass/volume] in Serum or Plasma Observa Value Referen Units Interpr Notes Date tion ce etation Range Thyroxine 0.76 - ng/dL Normal No Aug 11 (T4) 1.46 informati 2016 9:35 free on in AM [Mass/vol source ume] in data Serum or Plasma Lipid 1996 panel in Serum or Plasma Observa Value Referen Units Interpr Notes Date tion ce etation Range Cholester < 200 mg/dL No No Aug 11 ol informati informati 2016 9:35 [Moles/vo on in on in AM lume] in source source Unspecifi data data ed specimen Cholester 40 - 60 MG/DL Normal No Aug 11 ol in HDL informati 2016 9:35 on in AM [Mass/vol source ume] in data Serum or Plasma Cholester 0 - 130 mg/dL Normal No Aug 11 ol in LDL informati 2016 9:35 on in AM [Mass/vol source ume] in data Serum or Plasma by mary on Triglycer 30 - 200 mg/dL High No Aug 11 ashley informati 2016 9:35 [Moles/vo on in AM lume] in source Serum or data Plasma Cholester 0 - 40 No High No Aug 11 ol in informati informati 2016 9:35 VLDL on in on in AM [Mass/vol source source ume] in data data Serum or Plasma Thyrotropin [Units/volume] in Serum or Plasma Observa Value Referen Units Interpr Notes Date tion ce etation Range Thyrotrop 0.358 - uIU/ml No No Aug 11 in 3.740 informati informati 2016 9:35 [Units/vo on in on in AM lume] in source source Serum or data data Plasma CBC W Auto Differential panel in Blood Observa Value Referen Units Interpr Notes Date tion ce etation Range Basophils 0 - 0.2 K/MM3 Normal No Aug 11 informati 2016 9:35 [#/volume on in AM ] in source Blood by data Automated count Basophils 0.1 - 2.0 % Normal No Aug 11 /100 informati 2016 9:35 leukocyte on in AM s in source Blood by data Automated count Eosinophi 0.0 - 0.4 K/mm3 Normal No Aug 11 ls informati 2016 9:35 [#/volume on in AM ] in source Blood by data Automated count Eosinophi 0.1 - % Normal No Aug 11 ls/100 12.0 informati 2016 9:35 leukocyte on in AM s in source Blood by data Automated count Granulocy 1.8 - 7.8 K/mm3 High No Aug 11 tigre informati 2016 9:35 [#/volume on in AM ] in source Blood by data Automated count Granulocy 37.0 - % Normal No Aug 11 tigre/100 80.0 informati 2016 9:35 leukocyte on in AM s in source Blood by data Automated count Hematocri 37.0 - % Normal No Aug 11 t [Volume 47.0 informati 2016 9:35 on in AM Fraction] source of Blood data Hemoglobi 12.2 - g/dL Normal No Aug 11 n 16.2 informati 2016 9:35 [Mass/vol on in AM ume] in source Blood data Lymphocyt 0.7 - 4.5 K/mm3 Normal No Aug 11 es informati 2016 9:35 [#/volume on in AM ] in source Unspecifi data ed specimen by Automated count Lymphocyt 10 - 50.0 % Normal No Aug 11 es informati 2016 9:35 [#/volume on in AM ] in source Unspecifi data ed specimen by Automated count Erythrocy 27 - 31.2 pg High No Aug 11 te mean informati 2016 9:35 corpuscul on in AM ar source hemoglobi data n [Entitic mass] Erythrocy 31.8 - g/dl Normal No Aug 11 te mean 35.4 informati 2016 9:35 corpuscul on in AM ar source hemoglobi data n concentra tion [Mass/vol ume] by Automated count Erythrocy 82.2 - fl High No Aug 11 te mean 97.8 informati 2017 9:35 corpuscul on in AM ar volume source [Entitic data volume] by Automated count Monocytes 0.1 - 1.0 K/mm3 Normal No Aug 11 informati 2016 9:35 [#/volume on in AM ] in source Blood by data Automated count Monocytes 1.7 - 9.3 % Normal No Aug 11 / informati 2017 9:35 leukocyte on in AM s in source Blood by data Automated count Platelet 7.4 - fl Normal No Aug 11 mean 10.4 informati 2016 9:35 volume on in AM [Entitic source volume] data in Blood by Automated count Platelets 142 - 424 K/mm3 Normal No Aug 11 informati 2016 9:35 [#/volume on in AM ] in source Blood data Erythrocy 4.2 - 5.4 M/mm3 Low No Aug 11 tigre informati 2016 9:35 [#/volume on in AM ] in source Amniotic data fluid Erythrocy 11.5 - % Normal No Aug 11 te 17.5 informati 2016 9:35 distribut on in AM ion width source [Entitic data volume] by Automated count Leukocyte 4.8 - K/MM3 High No Aug 11 s 10.8 informati 2016 9:35 [#/volume on in AM ] in source Blood data Opiates and Oxycodone(GC/MS),U Observa Value Referen Units Interpr Notes Date tion ce etation Range Oxycodo Negativ Cutoff= No No Test Apr 20 ne/Oxym e 100 informa informa include 2017 orph tion in tion in s 11:14 source source Oxycodo AM data data ne and Oxymorp honePer formed at: [id number] [place], [place] [id number] 53Lab Directo r: Jed Zamudio MD, Phone: [phone] Opiates Negativ Cutoff= No No Opiate Apr [...] No Apr 20 mine E informa informa 2017 [Presen tion in tion in 11:14 ce] [...] data Carbon 21.0 - mmoL/L Normal No May 31 dioxide, 32.0 informati 2016 total on in [...] - 5.1 mmoL/L Normal No March 18 inform2016 [Moles/vo on in 11:35 AM lume] in [...] PM ume] in source Serum or data [id number] Plasma [address] [place], [place] [id number] Cook Pickled Meat: Gerald Aguilar PhD, Phone: [phone] Renal function 2000 panel in Serum [...] mg/dL High No March 03 [Mass/vol informati 2017 2:54 ume] in on in PM Serum or source Plasma data Potassium 3.5 - 5.1 mmoL/L Normal No March 03 informati 2016 2:54 [Moles/vo on in PM lume] in source Serum or data Plasma Sodium 136 - 145 mmoL/L Normal No March 03 [Moles/vo informati 2017 2:54 lume] in on in PM Serum or source Plasma data Phosphate 2.4 - 4.9 mg/dL Normal No March 03 informati 2017 2:54 [Moles/vo on in PM lume] in source Unspecifi data ed specimen 25-Hydroxyvitamin D [Mass/volume] in Serum or Plasma Observa Value Referen Units Interpr Notes Date tion ce etation Range 25-Hydrox 30.0 - ng/mL No Vitamin D March 03 yvitamin 100.0 informati 2016 2:54 D on in deficienc PM [Mass/vol source y has ume] in data been Serum or defined Plasma by the [place] [facility] e and an Endocrine Society practice guideline as alevel of serum 25-OH vitamin D less than 20 ng/mL (1,2).The Endocrine Society went on to further define vitamin Dinsuffic iency as a level between 21 and 29 ng/mL (2).1. IOM (Institut e of Medicine) . 2010. Dietary reference intakes for calcium and D. Len stevenson [place]: TheNation al [employer].2. Jose MF, Enedina [place], Manpreet Qureshi BOSCH, et al.Evalua tion, treatment , and preventio n of vitamin Ddeficien cy: an Endocrine Society clinical practiceg uideline. JCEM. 2010; 96(7):191 1-30.Perf ormed at: CB - [facility] [id number] [place], [place] [id number] Cook Pickled Meat: Gerald Aguilar PhD, Phone: [phone] Creatinine [Mass/volume] in Urine Observa Value Referen Units Interpr Notes Date tion ce etation Range Creatinin 20 - 320 mg/dL Normal No March 03 e informati 2016 2:54 [Mass/vol on in PM ume] in source Urine data Protein [Presence] in Urine Observa Value Referen Units Interpr Notes Date tion ce etation Range Protein < 6.0 0.0 - mg/dL Normal No March 03 11.9 informa 2017 [Presen tion in 2:54 PM ce] in source Urine data
--- OUTSIDE RECORDS SUMMARY | 2017-08-22 16:11 | External Medical Summary Rpt ---
Author Author [employer], [employer] Address Unknown Phone Unavailable Results 25-Hydroxyvitamin D [Mass/volume] in Serum or Plasma Observa Value Referen Units Interpr Notes Date tion ce etation Range 25-Hydrox 30.0 - ng/mL No Vitamin D Aug 11 yvitamin 100.0 informati 2017 9:35 D on in deficienc AM [Mass/vol source y has ume] in data been Serum or defined Plasma by the [place] of[facility] e and an Endocrine Society practice [...] JCEM. 2010; 96(7):191 1-30.Perf ormed at: - [facility] [place] [place] [id number] Battery Recharger: Gerald Aguilar PhD, Phone: [phone] Hemoglobin A1c in Blood Observa Value [...] data ne and [employer] honePer formed at: [facility] [id number] [place], [place] [id number] 53Lab Directo r: Jed Zamudio MD, Phone: [phone] Opiates Negativ Cutoff= No No Opiate Apr [...] PM ume] in source Serum or data [id number] Plasma 0 [place], [place] [id number] Battery Recharger: Gerald Aguilar PhD, Phone: [phone] Renal function 2000 panel in Serum [...] been Serum or defined Plasma by the [place] [facility] e and an Endocrine Society practice guideline as alevel of serum 25-OH vitamin D less than 20 ng/mL (1,2).The Endocrine Society went on to further define vitamin Dinsuffic iency as a level between 21 and 29 ng/mL (2).1. IOM (Institut e of Medicine) . 2010. Dietary reference intakes for calcium and D. Len stevenson [place]: [employer].2. Jose MF, Enedina [place], Manpreet Qureshi BOSCH, et al.Evalua tion, treatment , and preventio n of vitamin Ddeficien cy: an Endocrine Society clinical practiceg uideline. JCEM. 2010; 96(7):191 1-30.Perf ormed at: CB - [facility] [id number] [place], [place] [id number] Battery Recharger: Gerald Aguilar PhD, Phone: [phone] Creatinine [Mass/volume] in Urine Observa Value [...]
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
[2017-08-22] MEDS ORDERED: IBUPROFEN800 MG PO (17:03)
[2017-08-22 17:18] VITALS: BP 104/53
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
== END 2017-08-22 17:19 | disposition home or self-care (01) ==
LOC: UTC 16:00
DX: M25.511 Pain in right shoulder (principal); I10 Essential (primary) hypertension; E78.5 Hyperlipidemia, unspecified; J45.909 Unspecified asthma, uncomplicated; K21.9 Gastro-esophageal reflux disease without esophagitis; E03.9 Hypothyroidism, unspecified; F41.8 Other specified anxiety disorders; Z88.2 Allergy status to sulfonamides

== ENCOUNTER → 2017-08-25 | Outpatient (CLI) | payer MEDICARE ==
[~2017-08-25] MED LIST changes: +IBUPROFEN800 MG PO
--- NOTE | 2017-08-25 16:30 | RADIOLOGY REPORT PS360 ---
CT SINUS (MAX-FACIAL W/O CONT) CLINICAL INDICATION: CHRONIC SINUSITIS ORDERING PHYSICIAN: TRICIA ANSARI PATIENT AGE: 52 years COMPARISON: 11/07/2012 TECHNIQUE:Axial, sagittal, and coronal images are generated and reviewed without contrast FINDINGS: There is mild mucosal thickening along the inferior wall of the left maxillary sinus. No sinus air-fluid levels are evident. The inferior turbinate on the right is missing. Presumed prior surgery although that history is not made available. There is also small defect in the medial wall of the right and left maxillary sinus similar to the previous exam. There is mild leftward nasal septal deviation. The ostiomeatal complexes are patent. The orbits, TMJs, and mastoids are unremarkable. Middle ears are aerated. IMPRESSION: 1. Only mild left maxillary sinus mucosal thickening. 2. Postsurgical changes suspected. Please correlate with surgical history. 3. No evidence of acute sinusitis
== END ==
LOC: RAD 15:15
DX: J32.9 Chronic sinusitis, unspecified (principal)